=== PATIENT | female | born 1950 | race Caucasian/White ===

== ENCOUNTER 2016-08-05 21:34 | Inpatient (IN) | payer OTHER, MEDICARE ==
[~2016-08-05] VITALS: Ht 162.6 cm; Wt 89.0 kg
--- NOTE | 2016-08-05 23:44 | NUR ---
ED PHYSICIAN AT BEDSIDE FOR PATIENT EVALUATION. MEDICAL SCREENING EXAMINATION COMPLETED BY ED PHYSICIAN.
[2016-08-06] VITALS (7 sets, daily range): BP systolic 105–172; BP diastolic 57–82
[2016-08-06 00:08] LABS: CALCIUM 9.9 mg/dL (8.5-10.1); CHLORIDE SERUM 101 mmol/L (98-107); CREATININE SERUM 0.8 mg/dL (0.6-1.0); GFR1 > 60 mL/min; GLUCOSE SERUM 128 mg/dL (74-106); POTASSIUM SERUM 3.2 mmol/L (3.5-5.1); SODIUM SERUM 141 mmol/L (136-145)
[2016-08-06 00:11] LABS: BASOPHIL % 0.2 % (0-2); PLATELET COUNT 199 x10^3mcL (130-400)
--- NOTE | 2016-08-06 00:11 | NUR ---
REC'D A 66 Y/O F BIB SELF FOR C/C GEN INTERMITTENT ABD PAIN X1 MONTH. PT STS LAST NORMAL BM WAS X1 MONTH AGO, +DIARRHEA/NAUSEA/VOMITING. PT STS "IN THE LAST 3 DAYS, IT'S GOTTEN REALLY BAD." PT SPEAKS IN CLEAR AND COMPLETE SENTENCES, RESPIRATIONS EVEN AND UNLABORED. AAOX4. NO ACUTE/RESP DISTRESS. MSE COMPLETED BY DR PHILLIPS.
[2016-08-06 00:12] LABS: ALBUMIN 3.7 g/dL (3.4-5.0); ALKALINE PHOSPHATASE 77 U/L (46-116); ALT/SGPT 27 U/L (14-59); AMYLASE 38 U/L (25-115); AST/SGOT 26 U/L (15-37); BILIRUBIN TOTAL 0.81 mg/dL (0.20-1.00); LIPASE 155 IU/L (73-393); TOTAL PROTEIN, SERUM 7.8 g/dL (6.4-8.2)
[2016-08-06 00:14] LABS: RED CELL DISTRIBUTION WIDTH 14.7 % (11.5-14.5)
--- NOTE | 2016-08-06 00:18 | NUR ---
PT STS WAS DROPPED OFF. INFORMED PT SHE CAN'T DRIVE D/T NARCOTIC ADMIN AND INFORMED SHE MUST HAVE RIDE PRESENT AT BEDSIDE OR TO WAIT IN ER FOR 4 HOURS. PT GAVE VERBAL CONSENT AND UNDERSTANDING.
--- NOTE | 2016-08-06 00:19 | NUR ---
PT OFF UNIT FOR CT.
--- NOTE | 2016-08-06 00:20 | NUR ---
PT BACK TO ROOM.
[2016-08-06] MEDS ORDERED: GABAPENTIN800 M1 PO (01:48)
[2016-08-06] MEDS ORDERED: NEXIUM40 MG PO (01:48)
[2016-08-06] MEDS ORDERED: CYMBALTA60 M1 PO (01:49)
--- NOTE | 2016-08-06 01:57 | NUR ---
LAB AT BEDSIDE.
--- NOTE | 2016-08-06 02:10 | NUR ---
CALLED REPORT TO POOJA HERRING TO RESUME CARE.
--- NOTE | 2016-08-06 02:30 | NUR ---
PT ADMITTED TO TELE ON MONITOR WITH RN AND ERT. PT A/A&OX4. AMB WITH STEADY GAIT. IV PATENT. NAD NOTED.
[2016-08-06 03:20] LABS: CHOLESTEROL/HDL RATIO 3.4
[2016-08-06 03:22] LABS: T3 TOTAL 1.28 ng/mL
[2016-08-06 03:30] LABS: FREE T4 1.08 ng/dL (0.76-1.46); FREE THYROXINE INDEX 2.4 ug/dL (1.4-4.5); T4(THYROXINE) 7.9 ug/dL (4.7-13.3)
--- NOTE | 2016-08-06 03:30 | NUR ---
RECEIVED PT FROM ER VIA GURNEY ACCOMPANIED BY THE ER NURSE. PT IS A/A/O X4. DENIES DIZZINESS AND HEADACHE. BREATH SOUNDS CLEAR. BREATHING EVEN AND UNLABORED ON 2L NC, SPO2 99%. DENIES CHEST PAIN AND PRESSURE. ON TELE # 21, SINUS RHYTHYM ON THE MONITOR. BOWEL SOUNDS HYPER ACTIVE. C/O NAUSEA AND ABD PAIN. GAVE PT MORPHINE IVP AND ZOFRAN IVP. PT TOLERATED IT WELL. IV INTACT ON THE RAC INFUSING WITH NS AT 130 ML/HR. MADE PT COMFORTABLE. PLACED CALL LIGHT WITH IN REACH. WILL CONTINUE TO MONITOR.
--- NOTE | 2016-08-06 04:15 | NUR ---
PT C/O ABD PAIN. GAVE PT DILAUDID IVP. PT TOLERATED IT WELL. WILL CONTINUE TO MONITOR.
--- NOTE | 2016-08-06 04:39 | NUR ---
PT C/O ITCHYNESS. GAVE PT VISTATIL PO. PT TOLERATED IT WELL. WILL CONTINUE TO MONITOR.
--- NOTE | 2016-08-06 05:32 | NUR ---
PT RESTING WITH EYES CLOSED. EASILY AROUSABLE WITH VERBAL STIMULI. NO C/O PAIN AND NAUSEA THUS FAR. IV INTACT AND INFUSING ORDERED. MADE PT COMFORTABLE. WILL ENDORSE TO THE AM NURSE ACCORDINGLY.
[2016-08-06 06:39] LABS: BASOPHIL % 0.3 % (0-2); PLATELET COUNT 250 x10^3mcL (130-400); RED CELL DISTRIBUTION WIDTH 14.8 % (11.5-14.5)
[2016-08-06 06:56] LABS: CALCIUM 9.4 mg/dL (8.5-10.1); CARBON DIOXIDE 33.7 mmol/L (21-32); CHLORIDE SERUM 103 mmol/L (98-107); CREATININE SERUM 0.8 mg/dL (0.6-1.0); GFR1 > 60 mL/min; GLUCOSE SERUM 138 mg/dL (74-106); MAGNESIUM 1.7 mg/dL (1.8-2.4); PHOSPHOROUS 4.7 mg/dL (2.5-4.9); POTASSIUM SERUM 3.3 mmol/L (3.5-5.1); SODIUM SERUM 144 mmol/L (136-145)
--- NOTE | 2016-08-06 07:15 | NUR ---
RECIEVED REPORT FROM POOJA HERRING AT BEDSIDE. PT IS RESTING IN BED AT THIS TIME. PT IS RECIEVING 3L O2 VIA JR, NO SIGNS OF SOB OR ACUTE DISTRESS AT THIS TIME. NS INFUSING AT 130ML/HR TO RAC. IV SITE WNL. BED AT LOW AND CALL LIGHT WITHIN REACH.
--- NOTE | 2016-08-06 08:40 | NUR ---
PT SIGNED CONSENT FOR EDG AND CONSENT FOR SEDATION. PT IS TRANSFER TO BY BY [facility]. PT AMBULATED TO [facility] WITH STEADY GAIT. PT'S IV SITE IS [facility]. TRANSPORT RUB IS WITH PT. AWAITING FOR PT TO FINISH PROCEDURE.
--- NOTE | 2016-08-06 10:14 | NUR ---
PT IS TRANSFER BACK TO BED VIA [facility] PT AMBULATED WITH STEADY GAIT TO BED. PT IS RECIEVING 3L O2 VIA JR 95% O2 SAT, RR18. PT C/O ABD PAIN 02/18 WILL MEDICATE PER EMAR. BED AT LOW AND CALL LIGHT WITHIN REACH. EDUCATED PT ON PAIN CONTROL AND SIDE EFFECTS OF MORPHINE AND NORCOTICS. PT VERBALIZED UNDERSTANDING OF SIDE EFFECTS OF DEPRESS RESPIRATORY RATES AND BLOOD PRESSURE.
--- NOTE | 2016-08-06 13:30 | NUR ---
SWITCH OUT JR TO O2 MASK R/T PT'S DEVIATED SEPTUM. PT RECIEVING 4LO2 VIA JR, 97%O2SAT. PT IS AOX4 ABLE TO FOLLOW VERBAL COMMANDS. NO SIGNS OF ACUTE DISTRESS OR SOB NOTED. BED AT LOW AND CALL LIGHT WITHIN REACH.
--- NOTE | 2016-08-06 15:15 | NUR ---
Initial Nutrition Assessment Dx: Abdominal Pain 2/2 Acute Duodenitis vs PUD and Mid Sigmoid Diverticulitis PMHx: Hypertension, Peripheral Neuropathy, bilateral feet, h/o Basal Cell Carcinoma of Left arm s/p resection x2, Fx of Right Shoulder, Depression, Anxiety, Insomnia PSHx: excision of basal cell carcinoma, left arm, 2x at I Labs: K+ 3.3L, BG 138H, Alb 3.7, A1C 5.7 Meds: carafate, cephulac, colace, D50, humulin R, lactinex, moviprep, miralax, protonix, NS, zofran Current Diet Order: Clear Liquid (08/06-lunch) PO Intakes: NPO for breakfast, 80% L (08/06) Ht: 162.56cm,64". Wt: 196lbs, 88.96kg. BMI: 33.7 kg/m2 (Obese Class I) IBW: 120lb, 54.5 kg. %IBW: 163%. UBW: unable to obtain Age: 66 Y/O F Food Allergies: NKFA Skin: intact. [place]:19 Edema: noted trace to BLE GI: active bowel sounds, C/O diarrhea. Last BM:1 diarrhea (08/06) RN Trigger: N/V/D >3 days Pt admitted w/Abdominal Pain 2/2 Acute Duodenitis vs PUD and Mid Sigmoid Diverticulitis, seen at bedside w/ no family present, pt reports consuming 80% of lunch today, C/O diarrhea- denies other GI issues, when asked if the pt would like a review of the diet progression the pt declined and ended the RD interview, the RD left education on 2gm Na+ and low residue diet on table. Spoke to RN, reports the pt is doing much better today, tolerated clear liquid today, a rapid response code was called in the AM today when the pt was in GI lab, the situation is currently under control, the pt is having loose stools today. Problem with: N: None. V: None. D: Yes. C: None. Problem with: Chewing: None. Swallowing: None. Current Appetite: Good Recent Weight Change: unable to assess. % Weight Change: unable to assess Vitamin/Supplement Use: unable to obtain Diet at Home: unable to obtain Physical Activity: unable to obtain Education: unable to obtain Estimated Nutritional Needs Based on IBW 120 lb, 54.5kg Energy: 8941-0960 kcal/day (30-35 kcal/kg for Geriatric Maintenance) Protein: 55-65 g/day (1-1.2 g/kg for Geriatric Maintenance) Fluid: 7611-7718 ml/day (30-35 ml/kg for Geriatric Maintenance) or per MD Nutrition Diagnosis 1. Altered GI function related to poss infectious source 2/2 Acute Duodenitis vs PUD and Mid Sigmoid Diverticulitis as evidenced by pt C/O loose stools Intervention 1. C/W Clear Liquid diet. 2. If pt is able to tolerate diet, consider advancing to Full Liquid, then to Low Residue 2gm Na+. 3. If pt is unable to advance diet w/in 5-7 days, consider TPN. 4. Adjust BM regimen PRN Monitor/Evaluate Goal: PO intakes to meet >/=75% of estimated needs w/ tolerance; Diet advanced to solids at F/U Monitor: PO intakes/tolerance, labs, skin integrity, GI function, wt F/U in 3-5 days as MODERATE risk (08/09-08/11)
--- NOTE | 2016-08-06 15:21 | NUR ---
1. C/W Clear Liquid diet. 2. If pt is able to tolerate diet, consider advancing to Full Liquid, then to Low Residue 2gm Na+. 3. If pt is unable to advance diet w/in 5-7 days, consider TPN. 4. Adjust BM regimen PRN
--- NOTE | 2016-08-06 18:17 | NUR ---
PT WAS FOUND CYNAOTIC TO LIPS WITHOUT O2 MASK ON, RAPID RESPONSE WAS CALLED. PT WAS PUT ON 10LO2 VIA MASK. BP 139/61 MAP 87, BLOOD SUGAR IS CHECKED 125. DR. MELARA, RT, CHARGE NURSE ARTURO WAS AT BEDSIDE. FREDA HERRING WAS RECORDING. ABG AND EKG WAS ORDERED. PT WAS RESPONSIVE. PT WAS ABLE TO NAME, TIME, PLACE AND PERSON. BED AT LOW AND CALL LIGHT WITHIN REACH.
--- NOTE | 2016-08-06 18:35 | NUR ---
PT RESTING IN BED AT THIS TIME EATING DINNER. PT IS AAOX4, ABLE TO FOLLOW VERBAL COMMANDS. PT IS RECIEVING 3L O2 VIA JR, 96%O2SAT. PT IS EATING DINNER IN BED AT THIS TIME. BED AT LOW AND CALL LIGHT WITHIN REACH.
--- NOTE | 2016-08-06 19:12 | NUR ---
DR. SLOAN IS AWARE OF ABG RESULTS PCO2 73.4. AWAITING FOR NEW ORDERS. IS AWARE PT WANTS TO SPEAK TO A DOCTOR REGARDING TOMORROW'S COLONOSCOPY.
--- NOTE | 2016-08-06 20:00 | NUR ---
PT A/A/O X4. DENIES DIZZINESS AND HEADAHCE. BREATH SOUNDS DIMINISHED KIRSTIE BASES. BREATHING EVEN AND UNLABORED ON 3L NC, SPO2 92%. DR. FLOWERS AWARE. PT ENCOURAGED TO WEAR THE SIMPLE O2 MASK INSTEAD OF NC. PT REFUSED. DR. FLOWERS SPOKE TO THE PT AT BEDSIDE REGARDING COLONOSCOPY. ENCOURAGE THE PT TO CALL WHEN PT DEDICES TO AGREE WITH COLONOSCOPY. HYPERACTIVE BOWEL SOUNDS NOTED. NO C/O N/V AND ABD PAIN THUS FAR. IV INTACT ON THE RAC INFUSING WITH NS AT 130 ML/HR. MADE PT COMFORTABLE. PLACED CALL LIGHT WITH IN REACH. WILL CONTINUE TO MONITOR.
--- NOTE | 2016-08-07 00:43 | NUR ---
PT C/O ITCHYNESS. GAVE PT BENADRYL PO. TOLERATED IT WELL. PT CHANGED HER MIND AND AGREED FOR A COLONOSCOPY. GAVE PT FIRST MOVI PREP. DR. FLOWERS NOTIFIED. WILL CONTINUE TO MONITOR.
--- NOTE | 2016-08-07 02:01 | NUR ---
PT STARTED ON SECOND MOVI PREP. PT TOLERATED IT WELL. STOOL BROWN AND WATERY. WILL CONTINUE TO MONITOR.
[2016-08-07 03:25] VITALS: Ht 162.6 cm; Wt 89.0 kg
--- NOTE | 2016-08-07 05:22 | NUR ---
PT QUIET AND RESTING. NO C/O ABD PAIN AND NAUSEA THUS FAR. STOOL IS TRANSLUCENT WITH BROTH LIKE CONSISTENCY. IV INTACT AND INFUSING ORDERED. MADE PT COMFORTABLE. WILL ENDORSE TO THE AM NURSE ACCORDINGLY.
[2016-08-07 06:01] VITALS: BP 156/83
[2016-08-07 06:14] LABS: CALCIUM 8.7 mg/dL (8.5-10.1); CARBON DIOXIDE 31.3 mmol/L (21-32); CHLORIDE SERUM 108 mmol/L (98-107); CREATININE SERUM 0.9 mg/dL (0.6-1.0); GFR1 > 60 mL/min; GLUCOSE SERUM 105 mg/dL (74-106); POTASSIUM SERUM 4.7 mmol/L (3.5-5.1); SODIUM SERUM 145 mmol/L (136-145)
--- NOTE | 2016-08-07 06:40 | NUR ---
GAVE REPORT TO LIOR IN GI LAB. WILL ENDORSE TO THE AM NURSE ACCORDINGLY.
[2016-08-07 07:03] LABS: BASOPHIL % 0.4 % (0-2); PLATELET COUNT 178 x10^3mcL (130-400); RED CELL DISTRIBUTION WIDTH 14.9 % (11.5-14.5)
--- NOTE | 2016-08-07 07:15 | NUR ---
RECIEVED REPORT FROM TEN HERRING AT BEDSIDE. PT IS RESTING IN BED RECIEVING 4LO2 VIA JR. EASILY AROUSABLE, NO SIGNS OF ACUTE DISTRESS OR SOB AT THIS TIME. NS INFUSING AT 100 ML/HR TO RAC. IV SITE WNL. PT DENIES ANY PAIN AT THIS TIME. BED AT LOW AND CALL LIGHT WITHIN REACH.
[2016-08-07 08:10] VITALS: BP 143/84
--- NOTE | 2016-08-07 08:30 | NUR ---
PT IS ON BIPAP NO SIGNS OF ACUTE DISTRESS. BED AT LOW AND CALL LIGHT WITHIN REACH.
--- NOTE | 2016-08-07 09:00 | NUR ---
PT SALINE LOCK AND IS BEING TRANSPORT VIA GURNEY FOR COLONOSCOPY. TIERNEY TRANSPORTOR IS WITH PT.
--- NOTE | 2016-08-07 11:20 | NUR ---
PT WAS TRANSPORT BACK TO UNIT VIA GURNEY. PT WAS ABLE TO AMBULATED WITH ASSIST TO BED. PT RECIEVING 2L O2 VIA JR. NO SIGNS OF ACUTE DISTRESS IS NOTED. PT EATING ICE CHIPS IN BED. BED AT LOW AND CALL LIGHT WITHIN REACH.
[2016-08-07 14:00] VITALS: BP 137/74
[2016-08-07 17:17] VITALS: BP 126/58
--- NOTE | 2016-08-07 17:19 | NUR ---
PT C/O MOCK 12/19 WILL MEDICATE PER EMAR. NO SIGNS OF DISTRESS AT THIS TIME. PT DENIES ANY DIZZINESS. BED AT LOW AND CALL LIGHT WITHIN REACH.
--- NOTE | 2016-08-07 19:17 | NUR ---
PT IS AAOX4, ABLE TO FOLLOW VERBAL COMMANDS. NO SIGNS OF ACUTE DISTRESS OR SOB NOTED AT THIS TIME. PT IS RECIEVING 2L O2 VIA JR.PT DENIES ABD PAIN AT THIS TIME. DENIES N/V. NS INFUSING TO RAC. IV SITE WNL. BED AT LOW AND CALL LIGHT WITHIN REACH. ENDORSED ALL CARE TO KHURRAM HERRING.
--- NOTE | 2016-08-07 20:00 | NUR ---
RECEIVED PT IN BED, ALERT AND ORIENTED. DENIES HEADACHE/DIZZINESS. RESP. EVEN AND UNLABORED. [address], LUNGS SOUNDS DIM. AT THE BASES, ON RT PROTOCOL, NO DISTRESS NOTED. IVF, NS AT 100ML/HR, INTACT AND INFUSING WELL, SITE CLEAR. MED-SURG PT, NO TELE, DENIES CHEST PAIN OR PRESSURE. DENIES ANY DISCOMFORT AT THIS TIME. AMBULATORY. VOIDING FREELY. ASSISTED WITH HS CARE. CALL LIGHT WITHIN REACH. WILL CONTINUE TO MONITOR.
[2016-08-07 22:06] VITALS: BP 160/78
[2016-08-07 23:17] LABS: microscopic required? NO
[2016-08-07 23:38] LABS: urine erythrocyte NEGATIVE (NEGATIVE)
[2016-08-08 00:02] LABS: AMPHETAMINE QUAL UR NONE DETECTED (NEG <=1000)
--- NOTE | 2016-08-08 00:36 | NUR ---
APPEARS ASLEEP. WITH EYES CLOSED. EASILY AROUSABLE. WILL CONTINUE TO MONITOR.
--- NOTE | 2016-08-08 02:13 | NUR ---
COMPLAINED OF MOUTH PAIN AND HEADACHE, 4/10, REQUESTING PAIN MED, MEDICATED WITH NORCO 1TAB PO ORDERED. WILL CONTINUE TO MONITOR.
--- NOTE | 2016-08-08 03:48 | NUR ---
SLEEPING AT THIS TIME. APPEARS COMFORTABLE. NO DISTRESS NOTED. WILL CONTINUE TO MONITOR.
[2016-08-08 06:17] LABS: BASOPHIL % 0.4 % (0-2); PLATELET COUNT 180 x10^3mcL (130-400)
--- NOTE | 2016-08-08 06:25 | NUR ---
AFEBRILE AND VITAL SIGNS STABLE. RESP. EVEN AND UNLABORED. NO DISTRESS NOTED. COMPLAINED OF HEADACHE. MEDICATED WITH TYLENOL PO ORDERED WITH RELIEF. RESTING AT THIS TIME. DENIES CHEST PAIN OR PRESSURE. AMBULATES TO THE BATHROOM, VOIDING FREELY. DUE MEDS GIVEN ORDERED, DWAIN. WELL. WILL ENDORSE TO INCOMING NURSE.
[2016-08-08 06:28] VITALS: BP 111/78
[2016-08-08 06:43] LABS: RED CELL DISTRIBUTION WIDTH 14.6 % (11.5-14.5)
[2016-08-08 06:44] LABS: CARBON DIOXIDE 30.6 mmol/L (21-32); CHLORIDE SERUM 103 mmol/L (98-107); CREATININE SERUM 0.8 mg/dL (0.6-1.0); GFR1 > 60 mL/min; GLUCOSE SERUM 120 mg/dL (74-106); MAGNESIUM 1.3 mg/dL (1.8-2.4); PHOSPHOROUS 4.6 mg/dL (2.5-4.9); POTASSIUM SERUM 4.1 mmol/L (3.5-5.1); SODIUM SERUM 140 mmol/L (136-145)
--- NOTE | 2016-08-08 07:10 | NUR ---
REASSESSMENT DONE. PT AWAKE, COOPERATIVE OF CARE. DENIES ABD PAIN, NAUSEA, VOMITING. BOWEL SOUNDS ACTIVE TO ALL QUADRANTS. PT ON 2LNC LUNG SOUNDS CLEAR TO ALL CASTILLO. DENEIS CP, SOB. BED IN LOW POSITION, CALL LIGHT WITHIN REACH. KOFI CONTINUE TO MONITOR.
[2016-08-08] MEDS ORDERED: PROTONIX40 MG/Pac1 PO (10:07)
[2016-08-08] MEDS ORDERED: CAR1 PO (10:08)
[2016-08-08] MEDS ORDERED: METP PO (10:09)
[2016-08-08 10:36] VITALS: BP 130/79
[2016-08-08] MEDS ORDERED: NORCO1 TA2 PO (10:50)
[2016-08-08] MEDS ORDERED: COLACE100 MG PO (10:50)
--- NOTE | 2016-08-08 14:15 | NUR ---
DISCHARGE INSTRUCTIONS GIVEN TO PT AND DAUGHTER. PT VERBALIZED UNDERSTANDING OF FOLLOW UP. IV DC'D NO PHLEBITIS, CATHETER INTACT. PT ESCORTED OUT OF UNIT SAFELY VIA WHEELCHAIR BY DRILLER OPERATOR.
== END 2016-08-08 14:20 | disposition home or self-care (01) | DRG 384 ==
LOC: ED 21:34 → DU 08-06 01:56
PROVIDERS: Emergency Medicine; Internal Medicine Gastroenterology; ADMIT Family Medicine
PROC: 0DB68ZX Excision of Stomach, Via Natural or Artificial Opening Endoscopic, Diagnostic (ICD-10-PCS; principal; 2016-08-06 08:30)
PROC: 0W3P8ZZ Control Bleeding in Gastrointestinal Tract, Via Natural or Artificial Opening Endoscopic (ICD-10-PCS; 2016-08-07 09:00)
DX: K26.3 Acute duodenal ulcer without hemorrhage or perforation (principal); K57.32 Diverticulitis of large intestine without perforation or abscess without bleeding; K55.20 Angiodysplasia of colon without hemorrhage; E87.6 Hypokalemia; E83.42 Hypomagnesemia; K52.9 Noninfective gastroenteritis and colitis, unspecified; G62.9 Polyneuropathy, unspecified; I10 Essential (primary) hypertension; F41.8 Other specified anxiety disorders; R73.03 Prediabetes; E83.39 Other disorders of phosphorus metabolism; E78.5 Hyperlipidemia, unspecified; M19.90 Unspecified osteoarthritis, unspecified site; Z68.33 Body mass index [BMI] 33.0-33.9, adult; Z85.828 Personal history of other malignant neoplasm of skin
CPT/HCPCS: 43235; 45378; 80307; 82962; 83880; 84439; 87046; 87046-59; C9113; J1170; J1200; J1610; J1956; J2250; J2270; J2310; J2405; J3010; J3475; J3480; J3490; J7030; Q0092; Q0163; Q0177